=== PATIENT | female | born 1945 | race Caucasian/White ===

== ENCOUNTER → 2017-07-12 | Outpatient (CLI) | payer MEDICARE ==
--- NOTE | 2017-07-15 06:59 | MRI ---
Procedure: MR BRAIN WITHOUT IV CONTRAST Exam Date: 07/12/2017 10:59 AM CDT Ordering Provider: SERGEY STEWART Clinical Indication: Cerebral infarction due to unspecified occlusion or stenosis of u Comparison: None Technique: Multiplanar MRI of the brain was obtained without the administration of IV contrast. Findings: Advanced confluent T2/FLAIR signal abnormality seen in the bihemispheric white matter, nonspecific yet most likely microvascular ischemic change. There is also global parenchymal volume loss. Encephalomalacia seen within the right frontal lobe from prior cortical infarction. Ventricular size and configuration are normal. There is no midline shift or hydrocephalus. There is no evidence of an acute infarct. There is no parenchymal hemorrhage. The pituitary gland is normal in size. There are no pineal masses. There are normal intracranial vascular flow voids. The foramen magnum is normal. There is normal signal within the paranasal sinuses. The orbits are intact. IMPRESSION: 1. Nonacute MRI of the brain without the administration of IV contrast. 2. 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 Electronically signed by: Elpidio Ivy MD 07/15/2017 6:58 AM [facility]
--- NOTE | 2017-07-15 07:01 | MRI ---
EXAM DESCRIPTION: MR BRAIN ANGIOGRAPHY WITHOUT IV CONTRAST CLINICAL HISTORY: 72 yearsFemaleCerebral infarction due to unspecified occlusion or stenosis of u COMPARISON: None TECHNIQUE: 3D [id number] MR angiogram of the brain were also obtained without contrast. FINDINGS: Distal extracranial internal carotid arteries demonstrate normal flow related enhancement. Cavernous and supra clinoid ICAs are also normal. Middle cerebral arteries are patent. Anterior cerebral arteries are patent. Posterior cerebral arteries are symmetric and patent. Distal vertebral arteries are patent. Vertebrobasilar junction is unremarkable. Basilar artery is demonstrates normal flow related enhancement. Superior cerebellar as well as posterior inferior cerebral arteries are symmetric and unremarkable. No AV malformations or aneurysms identified. . IMPRESSION: Unremarkable MR angiogram of the brain Electronically signed by: Elpidio Ivy MD 07/15/2017 6:59 AM [facility]
== END | disposition home or self-care (01) ==
LOC: MRI 10:38
PROVIDERS: ATTEND Psychiatry & Neurology Neurology
DX: I63.50 Cerebral infarction due to unspecified occlusion or stenosis of unspecified cerebral artery (principal); G46.4 Cerebellar stroke syndrome

== ENCOUNTER → 2019-10-22 | Outpatient (CLI) | payer MEDICARE ==
--- NOTE | 2019-10-22 15:27 | MRI ---
EXAM DESCRIPTION: Brain w/o Contrast: MRI. CLINICAL HISTORY: CVA Cerebral infarction due to unspecified occlusion or stenosis COMPARISON: MRI scan of the brain without gadolinium IV contrast July 2017. TECHNIQUE: Multiplanar, high-field MRI unit, multiple diffusion sequences, multiple conventional sequences without contrast. FINDINGS: Bilateral hyperintense FLAIR and T2-weighted signal in the periventricular white matter and jones/sub-cortical white matter junctions of the cerebral hemispheres. Also extending into the bilateral centrum semiovale above the ventricles. Relatively symmetric bilaterally. Stable since the prior study . No hemorrhage, no cerebral edema, no mass-effect. No diffusion abnormality. Focal disc-shaped lesion in the posterior subcortical right frontal lobe hypointense on FLAIR and T1 signal and hyperintense on T2 and gradient sequence with adjacent cortical atrophy, consistent with encephalomalacia. Stable since the prior study. No diffusion abnormality. Small bilateral foci of hyperintense FLAIR and T2 signal in the basal ganglia. Small lesions in the posterior limb of the left internal capsule and adjacent left basal ganglia are new since the prior study No hemorrhage, no mass effect, with normal diffusion. Chronic symmetric hyperintense FLAIR signal in the heidy, stable since the prior study Normal signal in the remainder of the brainstem and cerebellar hemispheres. No hemorrhage, no parenchymal edema, no mass-effect. Normal diffusion Concordance of the diffusion and non-diffusion sequences in the remainder of the brain. With no diffusion restriction. Cortical sulci, ventricles, and other CSF spaces, and the subdural spaces are minimally prominent for patient's age but symmetric bilaterally.. No effacement or displacement. No midline shift. No extra-axial hemorrhage. Normal flow signal void in the major vessels of the [place], and the venous sinuses. IACs are symmetric bilaterally. Normal signal in the bilateral mastoid air cells. No mass effect in the bilateral cerebellopontine angles. Pituitary gland occupies the base of the sella. Base of the cerebellar tonsils is above the foramen magnum. Minimal mucoperiosteal thickening in the. The bony calvarium is intact. IMPRESSION: 1. Small foci of new lesions in the posterior limb of the left internal capsule and the adjacent medial left basal ganglia since the prior study, July 2017, but no diffusion restriction indicating acute or subacute infarction. No hemorrhage or mass effect. 2. Stable region of encephalomalacia in the subcortical white matter of the posterior right frontal lobe, and region of previous infarction. 3. Diffuse age-related and cerebral microvascular disease changes in the periventricular white matter and centrum semiovale bilaterally, with no significant change since the prior study. Electronically signed by: Martin Reddy MD 10/22/2019 3:26 PM [facility]
== END ==
LOC: MRI 14:10
PROVIDERS: ATTEND Psychiatry & Neurology Neurology
DX: I63.50 Cerebral infarction due to unspecified occlusion or stenosis of unspecified cerebral artery (principal); G93.9 Disorder of brain, unspecified; G93.89 Other specified disorders of brain